=== PATIENT | female | born 1985 | race Caucasian/White ===

== ENCOUNTER → 2019-05-22 | Outpatient (CLI) | payer OTHER ==
[2019-05-22 16:58] LABS: Source, Urine Clean Catch
[2019-05-22 18:29] LABS: Bilirubin, Urine Neg (Neg); Blood, Urine 1+ (Neg); Glucose Qualitative, Urine Neg (Neg); Ketones, Urine Neg (Neg); Leukocyte Esterase, Urine 2+ (Neg); Nitrite, Urine Neg (Neg); Protein, Urine Neg (Neg); Specific Gravity, Urine 1.005 (1.003-1.022); Urobilinogen, Urine NORM (Normal)
[2019-05-22 19:41] LABS: Appearance, Urine Clear (Clear); Color, Urine Yellow (P-Yellow)
[2019-05-22 19:43] LABS: Bacteria Mod /hpf; Red Blood Cells, Urine Not Seen /hpf (0-2); Squamous Epithelial Cells Few /hpf (Few)
[2019-05-23 10:37] LABS: Candida species (DNA Probe) Positive (NEGATIVE); G. vaginalis (DNA Probe) Negative (NEGATIVE); T. vaginalis (DNA Probe) Negative (NEGATIVE)
== END | disposition home or self-care (01) ==
LOC: LAB 16:45 → LAB SHORT 16:45
PROVIDERS: Advanced Practice Midwife
DX: N76.0 Acute vaginitis (principal); R30.9 Painful micturition, unspecified
CPT/HCPCS: 81001; 87077; 87086; 87186; 87480; 87510; 87660

== ENCOUNTER → 2019-10-24 | Outpatient (CLI) | payer OTHER | END | disposition home or self-care (01) | LOC: LAB 09:25 → LAB SHORT 09:25 | DX: Z34.83 Encounter for supervision of other normal pregnancy, third trimester (principal) | CPT/HCPCS: 87081; 87653 ==

== ENCOUNTER 2019-11-15 18:25 | Inpatient (IN) | payer OTHER ==
[~2019-11-15] VITALS: Ht 160 cm; Wt 71.4 kg
[2019-11-15] MEDS ORDERED: PRENATAL TABLE1 EAC2 PO (20:15)
[2019-11-15 20:27] LABS: Hematocrit 36.1 % (33.0-51.0); Hemoglobin 11.5 g/dL (11.5-16.0); Mean Corpuscular HGB 28.8 pg (26.0-34.0); Mean Corpuscular HGB Conc 31.9 g/dL (31.5-36.5); Mean Corpuscular Volume 91 fL (80-100); Mean Platelet Volume 10.3 fL (9.1-12.4); Platelet Count 243 K/mm3 (150-400); RDW Coefficient Variation 12.8 % (11.7-14.2); Red Blood Cell Count 3.99 M/mm3 (3.80-5.20); White Blood Cell Count 14.09 K/mm3 (4.00-11.30)
[2019-11-15 21:06] LABS: BAND PERCENT MAN 3 % (0-8); BASOPHILS PERCENT MAN 0 % (0-2); EOSINOPHILS PERCENT MAN 0 % (0-6); LYMPHOCYTES ABSOLUTE MAN 1.26 K/mm3 (0.84-5.20); LYMPHOCYTES PERCENT MAN 9 % (21-46); MONOCYTES ABSOLUTE MAN 0.28 K/mm3 (0.16-1.47); MONOCYTES PERCENT MAN 2 % (4-13); NEUTROPHILS ABSOLUTE MAN 12.54 K/mm3 (1.96-9.15); SEG NEUTROPHILS PERCENT MAN 86 % (41-73); TOTAL CELLS COUNTED 100
--- NOTE | 2019-11-15 23:58 | NUR ---
2 UNSUCESSFUL ATTEMPTS AT IV INSERTION BY YAW BLANDON, 2 UNSUCESSFUL ATTEMPTS BY FAHAD BLANDON
--- NOTE | 2019-11-16 12:12 | NUR ---
PUMP TAKEN IN TO PT. PT DOWN TO NURSERY TO PUMP WHILE SPENDING TIME WITH NB. PT'S KANKIA WENT DOWN WITH THEM. SPENT ABOUT 2 HOURS IN NURSERY AND NOW BACK IN ROOM.
--- NOTE | 2019-11-17 16:09 | NUR ---
RN ROUNDED TO HELP W/ . INSTRUCT/REVIEWED BOOKLET AND BROCHURE ON WHAT TO EXPECT DURING THE FIRST WEEK OF AND CHANGES IN NB. PT VERBALIZED UNDERSTANDING AND DENIES ANY FURTHER QUESTIONS OR CONCERNS.
--- NOTE | 2019-11-17 21:52 | NUR ---
MATERNAL EDUCATION REVIEWED WITH PATIENT AND S/O. PATIENT VERBALIZED UNDERSTANDING, DENIED ANY FURTHER QUESTIONS OR CONCERNS.
== END 2019-11-17 23:14 | disposition home or self-care (01) | DRG 807 ==
LOC: BC 18:25 → OBS 18:25 → BC 18:58
PROVIDERS: ADMIT Obstetrics & Gynecology
PROC: 10E0XZZ Delivery of Products of Conception, External Approach (ICD-10-PCS; principal; 2019-11-16)
PROC: 10907ZC Drainage of Amniotic Fluid, Therapeutic from Products of Conception, Via Natural or Artificial Opening (ICD-10-PCS; 2019-11-16)
PROC: 3E0R3BZ Introduction of Anesthetic Agent into Spinal Canal, Percutaneous Approach (ICD-10-PCS; 2019-11-16)
DX: O99.824 Streptococcus B carrier state complicating childbirth (principal); Z37.0 Single live birth; O99.344 Other mental disorders complicating childbirth; F41.9 Anxiety disorder, unspecified; Z3A.39 39 weeks gestation of pregnancy; O71.82 Other specified trauma to perineum and vulva
CPT/HCPCS: 36415; 51702; 85007; 85025; 85027; J0290; J1885; J2210; J2590; J7120

== ENCOUNTER → 2021-09-12 | Outpatient (CLI) | payer OTHER ==
[~2021-09-12] MED LIST: PRENATAL TABLE1 EAC2 PO
[2021-09-13 16:11] LABS: HPV 16 Negative (Negative); HPV 18 Negative (Negative); HPV OTHER HR TYPES Negative (Negative)
== END | disposition home or self-care (01) ==
LOC: LAB SHORT 17:08 → LAB 17:08
PROVIDERS: Family Medicine
DX: Z01.419 Encounter for gynecological examination (general) (routine) without abnormal findings (principal)
CPT/HCPCS: 87624; G0123

== ENCOUNTER → 2023-09-07 | Outpatient (CLI) | payer OTHER ==
[2023-09-08 10:45] LABS: Candida species (DNA Probe) Negative (NEGATIVE); G. vaginalis (DNA Probe) Positive (NEGATIVE); T. vaginalis (DNA Probe) Negative (NEGATIVE)
[2023-09-11 11:53] LABS: APTIMA MEDIA TYPE Unisex Swab; C. TRACHOMATIS BY TMA Negative (Negative); N. GONORRHOEAE BY TMA Negative (Negative); SPECIMEN SOURCE Cervical; T. VAGINALIS BY TMA Negative (Negative)
== END ==
LOC: LAB 16:45 → LAB SHORT 16:45
PROVIDERS: Family Medicine
DX: Z20.2 Contact with and (suspected) exposure to infections with a predominantly sexual mode of transmission (principal); N89.8 Other specified noninflammatory disorders of vagina
CPT/HCPCS: 87480; 87491; 87510; 87591; 87660; 87661